=== PATIENT | male | born 1985 | race Two or more races ===

== ENCOUNTER 2019-01-21 14:59 | Emergency (ER) | payer OTHER ==
[~2019-01-21] VITALS: Ht 175.3 cm; Wt 72.6 kg
[2019-01-21 15:04] VITALS: BP 131/76
--- NOTE | 2019-01-21 15:19 | NUR ---
SEEN AND EXAMINED BY DONALD SIMMS
[2019-01-21] MEDS ORDERED: LIDOCAINE 2% 20 ML MDV ONE (15:27)
[2019-01-21] MEDS ORDERED: CEPHALEXIN MONOHYDRATE 500 MG CAPSULE PO ONE ×2 (15:28→15:30)
--- NOTE | 2019-01-21 15:29 | NUR ---
INSPECTOR FUEL HOSE AT BEDSIDE FOR XRAY.
[2019-01-21] MEDS ORDERED: TDAP [DIPH/PERTUSSIS/TET] 0.5 ML VIAL IM ONE (15:30)
[2019-01-21] MEDS ORDERED: LIDOCAINE 2% 20 ML MDV TP ONE (15:30)
--- NOTE | 2019-01-21 16:22 | NUR ---
SUTURING DONE BY DONALD SIMMS.
--- NOTE | 2019-01-21 16:45 | NUR ---
Patient discharged to home in stable condition. Written and verbal after care instructions given. Patient verbalizes understanding of instruction.
== END 2019-01-21 16:46 | disposition home or self-care (01) ==
LOC: ER 15:01
DX: S62.610B Displaced fracture of proximal phalanx of right index finger, initial encounter for open fracture (principal); S56.421A Laceration of extensor muscle, fascia and tendon of right index finger at forearm level, initial encounter; Z23 Encounter for immunization; X58.XXXA Exposure to other specified factors, initial encounter; Y93.89 Activity, other specified; Y92.89 Other specified places as the place of occurrence of the external cause; Y99.8 Other external cause status
CPT/HCPCS: 29130; 73140; 90471; 90715; 99283; A6403; J3490